=== PATIENT | male | born 1940 | race Caucasian/White ===

== ENCOUNTER 2021-01-22 19:00 | Inpatient (IN) | payer MEDICARE, BC ==
[2021-01-22] MEDS ORDERED: ALBUTEROL NEBULIZED 2.5 MG/3 ML INHALATION STA ×2 (19:15→20:11)
[2021-01-22] MEDS ORDERED: IPRATROPIUM 0.5 MG/2.5 ML NEBU INHALATION STA ×2 (19:15→20:11)
[2021-01-22] MEDS ORDERED: DEXAMETHASONE SOD PHOSPHATE 10 MG/ML 1 ML VIAL IV STA (19:16)
--- NOTE | 2021-01-22 19:19 | ED ---
General Adult HPI - General Stated complaint: MANISH Time Seen by Provider: 01/22/21 19:04 - History of Present Illness Initial comments: Dictation was produced using [employer] dictation software. please excuse any grammatical, word or spelling errors. This patient was cared for during a federal and state declared state of emergency secondary to Covid 19 Chief Complaint: 80-year-old male past medical history of COPD, home O2 presents to the emergency department for dyspnea History of Present Illness: 80-year-old male he is a poor story. Patient and respiratory distress. He is brought in by EMS for dyspnea. Patient states he has a history of COPD. 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 Patient denies any chest pain. Denies any fever. No sore throat or cough or runny nose. EMS reports that they felt like he was having runs of supraventricular tachycardia with runs of trigeminy. No action was taken by them. The ROS documented in this emergency department record has been reviewed and confirmed by me. Those systems with pertinent positive or negative responses have been documented in the HPI. All other systems are other negative and/or noncontributory. PHYSICAL EXAM: General Impression: Alert and oriented x3, not in acute distress HEENT: Normocephalic atraumatic, extra-ocular movements intact, pupils equal and reactive to light bilaterally, mucous membranes moist. Cardiovascular: Heart regular rate and rhythm Chest: Diffuse wheezing with auscultation to the lungs, 3 word sentences Abdomen: abdomen soft, non-tender, non-distended, no organomegaly Musculoskeletal: Pulses present and equal in all extremities, no peripheral edema Motor: no focal deficits noted Neurological: CN II-XII grossly intact, no focal motor or sensory deficits noted Skin: Intact with no visualized rashes Psych: Normal affect and mood ED course: 80-year-old male presents to the emergency department for dyspnea. Patient significantly wheezing at bedside. Placed on BiPAP immediately. Has a history of COPD home oxygen. Chest x-ray shows pulmonary fibrosis with increased interstitial density. Laboratory evaluation shows no acute processes. Patient given breathing treatment and reevaluated at bedside with improvement of symptoms. Patient does not want any CPR but does agree to intubation. Patient be admitted and will be continued on BiPAP. Most of his care done at [facility]. He will be admitted to [facility] with consultation to pulmonology. EKG interpretation: Ventricular rate 27, sinus tachycardia,. 160, QRS 74, QTC 497. Multifocal atrial tachycardia. - Related Data Allergies Allergy/AdvReac Type Severity Reaction Status Date / Time No Known Allergies Allergy Verified 01/22/21 19:20 Review of Systems ROS Statement: Those systems with pertinent positive or pertinent negative responses have been documented in the HPI. ROS Other: All systems not noted in ROS Statement are negative. Course Vital Signs 01/22/21 01/22/21 01/22/21 19:15 19:17 19:35 Temperature 98.7 F Pulse Rate 122 H 118 H Respiratory 32 H 28 H Rate Blood Pressure 182/110 O2 Sat by Pulse 96 Oximetry 01/22/21 20:11 Temperature Pulse Rate 105 H Respiratory 24 Rate Blood Pressure 145/99 O2 Sat by Pulse 98 Oximetry Medical Decision Making - Lab Data Result diagrams: 01/22/21 19:21 01/22/21 19:21 Lab Results 01/22/21 01/22/21 01/22/21 Range/Units 19:21 19:21 19:21 WBC 9.6 (3.8-10.6) k/uL RBC 4.81 (4.30-5.90) m/uL Hgb 14.8 (13.0-17.5) gm/dL Hct 43.6 (39.0-53.0) % MCV 90.6 (80.0-100.0) fL MCH 30.7 (25.0-35.0) pg MCHC 33.9 (31.0-37.0) g/dL RDW 13.8 (11.5-15.5) % Plt Count 206 (150-450) k/uL MPV 7.6 Neutrophils % 58 % Lymphocytes % 24 % Monocytes % 7 % Eosinophils % 8 % Basophils % 1 % Neutrophils # 5.6 (1.3-7.7) k/uL Lymphocytes # 2.3 (1.0-4.8) k/uL Monocytes # 0.7 (0-1.0) k/uL Eosinophils # 0.8 H (0-0.7) k/uL Basophils # 0.1 (0-0.2) k/uL PT 10.7 (9.0-12.0) sec INR 1.0 (<1.2) APTT 24.1 (22.0-30.0) sec VBG pH (7.31-7.41) VBG pCO2 (37-51) mmHg VBG HCO3 (24-28) mmol/L Sodium 138 (137-145) mmol/L Potassium 3.7 (3.5-5.1) mmol/L Chloride 103 (98-107) mmol/L Carbon Dioxide 25 (22-30) mmol/L Anion Gap 10 mmol/L BUN 11 (9-20) mg/dL Creatinine 0.86 (0.66-1.25) mg/dL Est GFR (CKD-EPI)AfAm >90 (>60 ml/min/1.73 sqM) Est GFR (CKD-EPI)NonAf 81 (>60 ml/min/1.73 sqM) Glucose 121 H (74-99) mg/dL Plasma Lactic Acid Graham (0.7-2.0) mmol/L Calcium 9.0 (8.4-10.2) mg/dL Magnesium 1.7 (1.6-2.3) mg/dL NT-Pro-B Natriuret Pep pg/mL 01/22/21 01/22/21 01/22/21 Range/Units 19:21 19:21 19:21 WBC (3.8-10.6) k/uL RBC (4.30-5.90) m/uL Hgb (13.0-17.5) gm/dL Hct (39.0-53.0) % MCV (80.0-100.0) fL MCH (25.0-35.0) pg MCHC (31.0-37.0) g/dL RDW (11.5-15.5) % Plt Count (150-450) k/uL MPV Neutrophils % % Lymphocytes % % Monocytes % % Eosinophils % % Basophils % % Neutrophils # (1.3-7.7) k/uL Lymphocytes # (1.0-4.8) k/uL Monocytes # (0-1.0) k/uL Eosinophils # (0-0.7) k/uL Basophils # (0-0.2) k/uL PT (9.0-12.0) sec INR (<1.2) APTT (22.0-30.0) sec VBG pH 7.37 (7.31-7.41) VBG pCO2 47 (37-51) mmHg VBG HCO3 26 (24-28) mmol/L Sodium (137-145) mmol/L Potassium (3.5-5.1) mmol/L Chloride (98-107) mmol/L Carbon Dioxide (22-30) mmol/L Anion Gap mmol/L BUN (9-20) mg/dL Creatinine (0.66-1.25) mg/dL Est GFR (CKD-EPI)AfAm (>60 ml/min/1.73 sqM) Est GFR (CKD-EPI)NonAf (>60 ml/min/1.73 sqM) Glucose (74-99) mg/dL Plasma Lactic Acid Graham 1.9 (0.7-2.0) mmol/L Calcium (8.4-10.2) mg/dL Magnesium (1.6-2.3) mg/dL NT-Pro-B Natriuret Pep 237 pg/mL Disposition Clinical Impression: COPD exacerbation Disposition: HOME SELF-CARE Condition: Fair Is patient prescribed a controlled substance at d/c from ED?: No Referrals: Nonstaff,Physician [Primary Care Provider] - 1-2 days Decision Time: 20:19
--- NOTE | 2021-01-22 19:30 | XR ---
EXAMINATION TYPE: XR chest 1V portable DATE OF EXAM: 01/22/2021 COMPARISON: NONE HISTORY: Short of breath TECHNIQUE: Single view FINDINGS: There is slight increased interstitial density in the lower lung ojhn. There is no heart failure. Heart size is normal. Thoracic aorta is atheromatous. There is no pleural effusion. There ar e no hilar masses. There are chest leads. IMPRESSION: Mild increased interstitial density could relate to some mild fibrosis. Normal heart.
[2021-01-22 19:35] LABS: Basophils # (A) 0.1 k/uL (0-0.2); Basophils % (A) 1 %; Eosinophils # (A) 0.8 k/uL (0-0.7); Eosinophils % (A) 8 %; HCT 43.6 % (39.0-53.0); HGB 14.8 gm/dL (13.0-17.5); Lymphocytes # (A) 2.3 k/uL (1.0-4.8); Lymphocytes % (A) 24 %; MCH 30.7 pg (25.0-35.0); MCHC 33.9 g/dL (31.0-37.0); MCV 90.6 fL (80.0-100.0); Mean Platelet Volume 7.6; Monocytes # (A) 0.7 k/uL (0-1.0); Monocytes % (A) 7 %; Neutrophils # (A) 5.6 k/uL (1.3-7.7); Neutrophils % (A) 58 %; Platelet Count 206 k/uL (150-450); RBC 4.81 m/uL (4.30-5.90); RDW 13.8 % (11.5-15.5); WBC 9.6 k/uL (3.8-10.6)
[2021-01-22 19:41] LABS: VBG PH 7.37 (7.31-7.41)
[2021-01-22 19:45] LABS: African American GFR (CKD) >90 (>60 ml/min/1.73 sqM); Anion Gap 10 mmol/L; Blood Urea Nitrogen 11 mg/dL (9-20); Carbon Dioxide 25 mmol/L (22-30); Chloride 103 mmol/L (98-107); Glucose 121 mg/dL (74-99); Magnesium 1.7 mg/dL (1.6-2.3); Non-African American GFR(CKD) 81 (>60 ml/min/1.73 sqM); Potassium 3.7 mmol/L (3.5-5.1); Sodium 138 mmol/L (137-145)
[2021-01-22 19:47] LABS: Partial Thromboplastin Time 24.1 sec (22.0-30.0); Prothrombin Time 10.7 sec (9.0-12.0)
[2021-01-22] MEDS ORDERED: AZITHROMYCIN 500 MG in SODIUM CHLORIDE 0.9% 250 ML IVPB STA (20:11)
[2021-01-22] MEDS ORDERED: POTASSIUM CHLORIDE ER 20 MEQ TAB.ER PO STA (23:00)
[2021-01-22] MEDS: SYMBICORT 160-4.5 MCG INHALER INHALATION SCH (23:55)
--- NOTE | 2021-01-23 00:15 | P.HPIM ---
History of Present Illness H&P Date: 01/22/21 Chief Complaint: SOB 80 year old male with history of COPD on home oxygen 4LPM NC as needed , BPH patient comes in by EMS, for dyspnea, her reports having a physical last week and he was told that everything was fine, but since beginning of the week, he noticed some increase in work of breathing, coughing associated with productive white sputum. no hemoptyiss , no recent hospitalization , no recent use of antibiotics. denies any chest pain , fever, chills. today suddenly he felt very short of breath, with no improvement despite using home oxygen and inhalers. for which he decided to call EMS. he denies recent immobility, hospitalization , or travel ., denies any sick contact. while in the ED, he was noticed to have short runs of NSVT, his Mg 1.7, K 3.7 otherwise blood work overall unremarkable patient was given breathing treatmetn and placed on bipap for which he felt some relief Review of Systems Pertinent positives as noted in HPI. All other systems were reviewed and are negative Past Medical History Past Medical History: COPD History of Any Multi-Drug Resistant Organisms: None Reported Past Surgical History: No Surgical Hx Reported Past Anesthesia/Blood Transfusion Reactions: No Reported Reaction Past Psychological History: No Psychological Hx Reported Smoking Status: Former smoker Past Alcohol Use History: None Reported Past Drug Use History: None Reported Medications and Allergies Home Medications Medication Instructions Recorded Confirmed Type Albuterol Nebulized [Ventolin 2.5 mg INHALATION RT-TID PRN 01/22/21 01/22/21 History Nebulized] Albuterol Sulfate [Albuterol 2 puff PO RT-Q6H PRN 01/22/21 01/22/21 History Sulfate Hfa] Budesonide/Formoterol Fumarate 2 puff INHALATION RT-BID 01/22/21 01/22/21 History [Symbicort 160-4.5 Mcg Inhaler] Cholecalciferol [Vitamin D3 (25 125 mcg PO DAILY 01/22/21 01/22/21 History Mcg = 1000 Iu)] Finasteride [Proscar] 5 mg PO DAILY 01/22/21 01/22/21 History Glucos Sul 2Kcl/MSM/Chond/C/Mn 1 cap PO DAILY 01/22/21 01/22/21 History [Glucosamine Chondroitin Cap] Montelukast Sodium [Singulair] 10 mg PO DAILY 01/22/21 01/22/21 History [place]-3 Fatty Acids/Fish Oil [Fish 1 cap PO DAILY 01/22/21 01/22/21 History Oil 1,000 mg Softgel] Omeprazole 20 mg PO DAILY 01/22/21 01/22/21 History Simvastatin 40 mg PO DAILY 01/22/21 01/22/21 History Tamsulosin [Flomax] 0.4 mg PO DAILY 01/22/21 01/22/21 History Vitamin B Complex 1 cap PO DAILY 01/22/21 01/22/21 History Allergies Allergy/AdvReac Type Severity Reaction Status Date / Time No Known Allergies Allergy Verified 01/22/21 20:53 Physical Exam Vitals: Vital Signs Temp Pulse Pulse Resp BP BP Pulse Ox 01/22/21 22:15 100 01/22/21 21:39 100 01/22/21 21:27 96.5 F L 102 H 23 142/76 96 01/22/21 21:24 106 H 01/22/21 20:25 110 H 01/22/21 20:11 105 H 24 145/99 98 01/22/21 19:56 116 H 01/22/21 19:35 118 H 01/22/21 19:17 98.7 F 122 H 28 H 182/110 96 01/22/21 19:15 32 H Intake and Output 01/22/21 01/22/21 01/23/21 14:59 22:59 07:59 Other: Weight 72.575 kg Constitutional: No acute distress, conversant, pleasant, currently on bipap Eyes: Anicteric sclerae, moist conjunctiva, Pupils equal round reactive to light ENMT: NC/AT wearing bipap Neck: Supple, FROM, no masses, or JVD No carotid bruits No thyromegaly Lungs: decrease breath sounds , with prolonged expiratory phase and diffuse wheezing Clear to percussion accessory muscle use Cardiovascular: Heart regular in rate and rhythm, No murmurs, gallops, or rubs No peripheral edema Abdominal: Soft Nontender, no guarding, rebound or rigidity Abdomen moving with respiration Normoactive bowel sounds No hepatomegaly, No splenomegaly No palpable mass No abdominal wall hernia noted Skin: Normal temperature, tone, texture, turgor No induration No subcutaneous nodules No rash, lesions No ulcers Extremities: No digital cyanosis No clubbing Pedal pulses intact and symmetrical Radial pulses intact and symmetrical No calf tenderness Psychiatric: Alert and oriented to person, place and time Appropriate affect fair judgement Neuro Muscles Strength 5/5 in all 4 extremities Sensation to light touch grossly present throughout Cranial nerves II-XII grossly intact No focal sensory deficits Lymphatics: no palpable cervical or supraclavicular , or inguinal lymph nodes Results CBC & Chem 7: 01/22/21 19:21 01/22/21 19:21 Labs: Abnormal Lab Results - Last 24 Hours (Table) 01/22/21 01/22/21 Range/Units 19:21 19:21 Eosinophils # 0.8 H (0-0.7) k/uL Glucose 121 H (74-99) mg/dL Thrombosis Risk Factor Assmnt - Choose All That Apply Any of the Below Risk Factors Present?: Yes Each Factor Represents 1 point: Abnormal pulmonary function (COPD) Each Risk Factor Represents 3 Points: Age 75 years or older Thrombosis Risk Factor Assessment Total Risk Factor Score: 4 Thrombosis Risk Factor Assessment Level: Moderate Risk Assessment and Plan Assessment: acute COPD exacerbation , unknown underlying cause non sustained VT BPH plan systemic steroids check COVID 19 breathing treatment as needed and around the clock singulair replace 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
[2021-01-23 06:15] LABS: Glucose,Whole Blood 161 mg/dL (75-99)
[2021-01-23] MEDS: PANTOPRAZOLE 40 MG TABLET PO SCH (06:46)
[2021-01-23 07:04] LABS: Basophils % (A) 0 %; Eosinophils % (A) 0 %; HCT 41.4 % (39.0-53.0); HGB 13.6 gm/dL (13.0-17.5); Lymphocytes # (A) 0.5 k/uL (1.0-4.8); Lymphocytes % (A) 10 %; MCHC 32.9 g/dL (31.0-37.0); MCV 91.1 fL (80.0-100.0); Mean Platelet Volume 7.6; Monocytes # (A) 0.1 k/uL (0-1.0); Monocytes % (A) 2 %; Neutrophils % (A) 87 %; Platelet Count 213 k/uL (150-450); RBC 4.54 m/uL (4.30-5.90); RDW 13.8 % (11.5-15.5); WBC 4.6 k/uL (3.8-10.6)
[2021-01-23 07:17] LABS: ALT 19 U/L (4-49); AST 35 U/L (17-59); African American GFR (CKD) >90 (>60 ml/min/1.73 sqM); Albumin 3.8 g/dL (3.5-5.0); Alkaline Phosphatase 66 U/L (38-126); Anion Gap 11 mmol/L; Blood Urea Nitrogen 13 mg/dL (9-20); Carbon Dioxide 23 mmol/L (22-30); Chloride 105 mmol/L (98-107); Glucose 171 mg/dL (74-99); Magnesium 1.7 mg/dL (1.6-2.3); Non-African American GFR(CKD) >90 (>60 ml/min/1.73 sqM); Potassium 4.5 mmol/L (3.5-5.1); Sodium 139 mmol/L (137-145); Total Bilirubin 0.6 mg/dL (0.2-1.3); Total Protein 6.4 g/dL (6.3-8.2)
[2021-01-23] MEDS: TAMSULOSIN 0.4 MG CAP.ER.24H PO SCH (08:19)
[2021-01-23] MEDS: ENOXAPARIN 40 MG/0.4 ML SYRINGE SQ SCH (08:19)
[2021-01-23] MEDS: ATORVASTATIN 20 MG TAB PO SCH (08:19)
[2021-01-23] MEDS: MONTELUKAST 10 MG TAB PO SCH (08:19)
[2021-01-23] MEDS: FINASTERIDE 5 MG TAB PO SCH (08:19)
[2021-01-23] MEDS: IPRATROPIUM-ALBUTEROL 3 ML NEB INHALATION SCH ×4 (08:51→19:53)
[2021-01-23] MEDS: SYMBICORT 160-4.5 MCG INHALER INHALATION SCH ×3 (08:51→19:56)
[2021-01-23] MEDS ORDERED: predniSONE 20 MG TAB PO SCH (09:00)
[2021-01-23] MEDS: methylPREDNISolone SOD SUCCI 40 MG/ML 1 ML VIAL IV SCH ×3 (12:03→23:17)
[2021-01-23] MEDS: AZITHROMYCIN 500 MG TAB PO SCH (12:04)
[2021-01-23 12:09] LABS: Glucose,Whole Blood 138 mg/dL (75-99)
[2021-01-23] MEDS: INSULIN ASPART (NovoLOG) 100 UNIT/ML VIAL SQ SCH ×3 (12:10→20:03)
--- NOTE | 2021-01-23 14:27 | P.PN ---
Subjective Progress Note Date: 01/23/21 Pt reports significant improvement in dyspnea and improvement in cough with sputum production. Still reports some chest tightness/wheezing. Objective - Vital Signs Vital signs: Vital Signs Temp 97.6 F 01/23/21 08:15 Pulse 93 01/23/21 11:58 Resp 20 01/23/21 11:30 BP 134/75 01/23/21 11:30 Pulse Ox 96 01/23/21 11:30 Intake & Output 01/22/21 01/23/21 01/23/21 17:59 06:59 18:59 Intake Total 240 Balance 240 Weight Intake: Oral 240 Other: Voiding Method Urinal # Voids - Exam Gen: awake, alert HEENT: normocephalic, atraumatic, good hearing acuity, moist mucous membranes Resp: good air exchange, breathing comfortably with no accessory muscle use, bilateral diffuse wheezing CVS: good distal perfusion x 4, regular rate and rhythm without murmurs GI: soft, NTTP, ND : no SPT, no CVAT, doran catheter not present MSK: no pitting edema, no clubbing Neuro: non-focal, moving all extremities Psych: cooperative, euthymic mood - Labs CBC & Chem 7: 01/23/21 06:18 01/23/21 06:18 Labs: Abnormal Lab Results - Last 24 Hours (Table) 01/22/21 01/22/21 01/23/21 Range/Units 19:21 19:21 06:13 Lymphocytes # (1.0-4.8) k/uL Eosinophils # 0.8 H (0-0.7) k/uL Glucose 121 H (74-99) mg/dL POC Glucose (mg/dL) 161 H (75-99) mg/dL 01/23/21 01/23/21 01/23/21 Range/Units 06:18 06:18 12:08 Lymphocytes # 0.5 L (1.0-4.8) k/uL Eosinophils # (0-0.7) k/uL Glucose 171 H (74-99) mg/dL POC Glucose (mg/dL) 138 H (75-99) mg/dL Assessment and Plan Assessment: Acute COPD exacerbation CAP NSVT BPH plan systemic steroids ceftriaxone/azithromycin check COVID 19 breathing treatment as needed and around the clock singulair, symbicort replace 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
--- NOTE | 2021-01-23 15:38 | P.CNPUL ---
History of Present Illness Consult date: 01/23/21 Requesting physician: Rosina Arreola Reason for consult: COPD Chief complaint: Shortness of breath and cough. 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 Patient has been experiencing intermittent episodes of cough wheezing and shortness of breath, cough is productive with yellow phlegm, no fever no chills no hemoptysis, no chest pain. His symptoms have been going on for at least one week. Had similar symptoms in the past were in his primary care physician has treated him mostly with prednisone burst and taper, and he usually does well with steroids. Apparently upon arrival to the ER, patient was in significant respiratory distress, and he was given updrafts, he was also placed on BiPAP briefly, and that seemed to help his symptoms. Patient used to be a heavy smoker, however he quit at age 48. Does not smoke at present. Patient is normally on updrafts in the form of albuterol, and he takes Symbicort on a regular basis at home is also on Singulair. Chest x-ray showed minimal interstitial density at the right lung base, could be atelectasis or could be an early infiltrate. Nonetheless the patient will be treated with antibiotics empirically. No leukocytosis on admission. Metabolic profile is relatively normal on admission. Renner virus PCR not detected. Other labs are also unremarkable. Review of Systems Constitutional: Denies fever chills denies weight loss. HEENT: Negative. Cardiac: Negative although while in the emergency room patient had short runs of nonsustained ventricular tachycardia. Pulmonary: As noted in HPI. GI: Negative. Genitourinary: Negative. Musculoskeletal: Negative. Skin: Negative. Neurologic: Negative. Hematologic: Negative. Psychiatric: Negative. Endocrine: Negative. Past Medical History Past Medical History: COPD History of Any Multi-Drug Resistant Organisms: None Reported Past Surgical History: No Surgical Hx Reported Past Anesthesia/Blood Transfusion Reactions: No Reported Reaction Past Psychological History: No Psychological Hx Reported Smoking Status: Former smoker Past Alcohol Use History: None Reported Past Drug Use History: None Reported Medications and Allergies Home Medications Medication Instructions Recorded Confirmed Type Albuterol Sulfate [Albuterol 2 puff PO RT-Q6H PRN 01/22/21 01/22/21 History Sulfate Hfa] Cholecalciferol [Vitamin D3 (25 125 mcg PO DAILY 01/22/21 01/22/21 History Mcg = 1000 Iu)] Finasteride [Proscar] 5 mg PO DAILY 01/22/21 01/22/21 History Glucos Sul 2Kcl/MSM/Chond/C/Mn 1 cap PO DAILY 01/22/21 01/22/21 History [Glucosamine Chondroitin Cap] Montelukast Sodium [Singulair] 10 mg PO DAILY 01/22/21 01/22/21 History [place]-3 Fatty Acids/Fish Oil [Fish 1 cap PO DAILY 01/22/21 01/22/21 History Oil 1,000 mg Softgel] Omeprazole 20 mg PO DAILY 01/22/21 01/22/21 History Simvastatin 40 mg PO DAILY 01/22/21 01/22/21 History Tamsulosin [Flomax] 0.4 mg PO DAILY 01/22/21 01/22/21 History Vitamin B Complex 1 cap PO DAILY 01/22/21 01/22/21 History Budesonide/Formoterol Fumarate 2 puff INHALATION RT-BID PRN 01/23/21 01/23/21 History [Symbicort 80-4.5 Mcg Inhaler] Ipratropium-Albuterol Nebulize 3 ml INHALATION RT-QID PRN 01/23/21 01/23/21 History [Duoneb 0.5 mg-3 mg/3 ml Soln] Allergies Allergy/AdvReac Type Severity Reaction Status Date / Time No Known Allergies Allergy Verified 01/22/21 20:53 Physical Exam Vitals: Vital Signs Temp Pulse Pulse Resp BP BP Pulse Ox 01/23/21 15:15 95 01/23/21 15:02 94 01/23/21 11:58 93 01/23/21 11:47 92 01/23/21 11:30 112 H 20 134/75 96 01/23/21 09:01 18 97 01/23/21 08:24 18 97 01/23/21 08:15 97.6 F 109 H 18 139/80 96 01/23/21 04:00 97.9 F 105 H 20 129/77 97 01/23/21 03:00 108 H 22 01/23/21 00:00 98.4 F 108 H 22 134/76 96 03/13/21 22:15 100 01/22/21 21:39 100 01/22/21 21:27 96.5 F L 102 H 23 142/76 96 01/22/21 21:24 106 H 01/22/21 20:25 110 H 01/22/21 20:11 105 H 24 145/99 98 01/22/21 19:56 116 H 01/22/21 19:35 118 H 01/22/21 19:17 98.7 F 122 H 28 H 182/110 96 01/22/21 19:15 32 H Intake and Output 01/23/21 01/23/21 01/23/21 06:59 14:59 22:59 Intake Total 590 Balance 590 Intake: Intake, IV Titration 50 Amount cefTRIAXone 1 gm In 50 Sodium Chloride 0.9% 50 ml @ 100 mls/hr IVPB Q24HR [facility] Rx#:[id number] Oral 540 Other: Voiding Method Urinal # Voids 1 # Bowel Movements 1 Weight Physical Exam: Revealed 80-year-old white male, pleasant, in no distress, on 2 L nasal cannula. Head: Atraumatic, normocephalic. HEENT:[Neck is supple.] [No neck masses.] [No thyromegaly.] [No JVD.] Chest: Symmetrical chest expansion, rhonchi and wheezes noted bilaterally more so on forced expiratory maneuver.] Cardiac Exam: [Normal S1 and S2, no S3 gallop, no murmur.] Abdomen: [Soft, nontender, no megaly, no rebound, no guarding, normal bowel sounds.] Extremities: [No clubbing, no edema, no cyanosis.] Good pulses bilaterally. Neurological Exam: [No focal neurologic deficit.] Alert and oriented 3. Psychiatric: Normal mood, affect and normal mental status examination. Skin: No rashes. Musculoskeletal: Normal range of motion no deformities. Lymphatics: No lymphadenopathy. Results - Laboratory Findings CBC and BMP: 01/23/21 06:18 01/23/21 06:18 PT/INR, D-dimer PT 10.7 sec (9.0-12.0) 01/22/21 19:21 INR 1.0 (<1.2) 01/22/21 19:21 Abnormal lab findings: Abnormal Labs 01/22/21 01/22/21 01/23/21 19:21 19:21 06:13 Lymphocytes # Eosinophils # 0.8 H Glucose 121 H POC Glucose (mg/dL) 161 H 01/23/21 01/23/21 01/23/21 06:18 06:18 12:08 Lymphocytes # 0.5 L Eosinophils # Glucose 171 H POC Glucose (mg/dL) 138 H - Diagnostic Findings Chest x-ray: image reviewed (As noted in HPI.) Assessment and Plan Assessment: Impression: Acute exacerbation of COPD. Acute purulent tracheobronchitis, however cannot rule out limited pneumonia in the right lower lobe, could be community-acquired pneumonia the findings in the right lower lobe are nonspecific. Remote smoking history. Nonsustained ventricular tachycardia. Benign prostatic hypertrophy. Recommendation: Continue updrafts. Continue Symbicort. Continue antibiotics in the form of Rocephin and Zithromax. Continue DVT prophylaxis. Continue Solu-Medrol. And eventually transitioned to prednisone. Reassess in the next 24 hours, possibly discharged home in the next 24-48 hours. Follow-up with me on outpatient basis. We'll continue to follow. Time with Patient: Greater than 30
[2021-01-23 17:02] LABS: Glucose,Whole Blood 156 mg/dL (75-99)
[2021-01-23 19:58] LABS: Glucose,Whole Blood 139 mg/dL (75-99)
[2021-01-24 06:05] LABS: Glucose,Whole Blood 154 mg/dL (75-99)
[2021-01-24] MEDS: methylPREDNISolone SOD SUCCI 40 MG/ML 1 ML VIAL IV SCH ×3 (06:20→17:51)
[2021-01-24] MEDS: INSULIN ASPART (NovoLOG) 100 UNIT/ML VIAL SQ SCH ×4 (06:20→21:03)
[2021-01-24] MEDS: PANTOPRAZOLE 40 MG TABLET PO SCH (06:20)
[2021-01-24] MEDS: IPRATROPIUM-ALBUTEROL 3 ML NEB INHALATION SCH ×4 (08:25→20:09)
[2021-01-24] MEDS: SYMBICORT 160-4.5 MCG INHALER INHALATION SCH ×2 (09:01→20:09)
[2021-01-24] MEDS: AZITHROMYCIN 500 MG TAB PO SCH (09:10)
[2021-01-24] MEDS: ENOXAPARIN 40 MG/0.4 ML SYRINGE SQ SCH (09:10)
[2021-01-24] MEDS: TAMSULOSIN 0.4 MG CAP.ER.24H PO SCH (09:10)
[2021-01-24] MEDS: ATORVASTATIN 20 MG TAB PO SCH (09:10)
[2021-01-24] MEDS: MONTELUKAST 10 MG TAB PO SCH (09:11)
[2021-01-24] MEDS: FINASTERIDE 5 MG TAB PO SCH (09:11)
--- NOTE | 2021-01-24 09:15 | P.PN ---
Subjective Progress Note Date: 01/24/21 No new complaints. Cough is improving, sputum production is now white/clear. Breathing improved. Still feels a little tight and dyspneic with exertion. Objective - Vital Signs Vital signs: Vital Signs Temp 96.5 F L 01/24/21 08:42 Pulse 95 01/24/21 08:42 Resp 18 01/24/21 08:42 BP 126/96 01/24/21 08:42 Pulse Ox 95 01/24/21 08:42 Intake & Output 01/23/21 01/24/21 01/24/21 18:59 06:59 18:59 Intake Total 826 Output Total 400 200 Balance 426 -200 Weight 69.2 kg Intake: Intake, IV Titration 50 Amount cefTRIAXone 1 gm In 50 Sodium Chloride 0.9% 50 ml @ 100 mls/hr IVPB Q24HR [facility] Rx#:[id number] Oral 776 Output: Urine 400 200 Other: Voiding Method Urinal Urinal Urinal # Voids 1 1 # Bowel Movements 1 - Exam Gen: awake, alert HEENT: normocephalic, atraumatic, good hearing acuity, moist mucous membranes Resp: good air exchange, breathing comfortably with no accessory muscle use, bilateral diffuse wheezing CVS: good distal perfusion x 4, regular rate and rhythm without murmurs GI: soft, NTTP, ND : no SPT, no CVAT, doran catheter not present MSK: no pitting edema, no clubbing Neuro: non-focal, moving all extremities Psych: cooperative, euthymic mood - Labs CBC & Chem 7: 01/23/21 06:18 01/23/21 06:18 Labs: Abnormal Lab Results - Last 24 Hours (Table) 01/23/21 01/23/21 01/23/21 Range/Units 12:08 17:00 19:56 POC Glucose (mg/dL) 138 H 156 H 139 H (75-99) mg/dL 01/24/21 Range/Units 06:04 POC Glucose (mg/dL) 154 H (75-99) mg/dL Assessment and Plan Assessment: Acute COPD exacerbation CAP NSVT BPH plan systemic steroids ceftriaxone/azithromycin check COVID 19 breathing treatment as needed and around the clock singulair, symbicort 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
[2021-01-24 12:03] LABS: Glucose,Whole Blood 120 mg/dL (75-99)
--- NOTE | 2021-01-24 16:14 | P.PN ---
Subjective Progress Note Date: 01/24/21 Principal diagnosis: COPD exacerbation. 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 Patient has been experiencing intermittent episodes of cough wheezing and shortness of breath, cough is productive with yellow phlegm, no fever no chills no hemoptysis, no chest pain. His symptoms have been going on for at least one week. Had similar symptoms in the past were in his primary care physician has treated him mostly with prednisone burst and taper, and he usually does well w ith steroids. Apparently upon arrival to the ER, patient was in significant respiratory distress, and he was given updrafts, he was also placed on BiPAP briefly, and that seemed to help his symptoms. Patient used to be a heavy smoker, however he quit at age 48. Does not smoke at present. Patient is normally on updrafts in the form of albuterol, and he takes Symbicort on a regular basis at home is also on Singulair. Chest x-ray showed minimal interstitial density at the right lung base, could be atelectasis or could be an early infiltrate. Nonetheless the patient will be treated with antibiotics empirically. No leukocytosis on admission. Metabolic profile is relatively normal on admission. Renner virus PCR not detected. Other labs are also unremarkable. Progress note dated 01/24/2021. This patient was seen by my partner yesterday in consultation. His primary care is at [facility]. He came with complaints of increasing cough, wheezing, and shortness of breath. His cough was productive of yellow phlegm. There is no fever or chills or chest pain. The patient was admitted with a diagnosis of COPD exacerbation. When he came into the ER, he was apparently in significant respiratory distress, placed on BiPAP and given corticosteroids in updraft treatments. Currently, he is resting comfortably in his room. He sitting up in his chair. He is hoping to be able to be discharged in the near future. There is some bibasilar infiltrates or atelectasis noted, at both bases, more on the right than on the left side. His most recent labs all look pretty good and they are from the and January 23. His coronavirus PCR test was negative. His medications include Symbicort, Zithromax, Rocephin, DuoNeb, and Solu-Medrol. He is also on Singulair, 10 mg daily. Objective - Vital Signs Vital signs: Vital Signs Temp 96.5 F L 01/24/21 08:42 Pulse 96 01/24/21 15:55 Resp 18 01/24/21 14:00 BP 116/79 01/24/21 11:50 Pulse Ox 94 L 01/24/21 11:50 Intake & Output 01/23/21 01/24/21 01/24/21 18:59 06:59 18:59 Intake Total 826 240 Output Total 400 200 280 Balance 426 -200 -40 Weight 69.2 kg Intake: Intake, IV Titration 50 Amount cefTRIAXone 1 gm In 50 Sodium Chloride 0.9% 50 ml @ 100 mls/hr IVPB Q24HR PREMA Rx#:[id number] Oral 776 240 Output: Urine 400 200 280 Other: Voiding Method Urinal Urinal Urinal # Voids 1 1 1 # Bowel Movements 1 - Exam No acute distress, oriented 3. Nasal O2 at 3 L noted. The patient has no evidence of conversational dyspnea, audible wheezing, or use of accessory muscles HEENT examination is grossly unremarkable. Mucous membranes are moist. No oral lesions. Neck supple. Full range of motion. No adenopathy thyromegaly or neck vein distention. Cardiovascular examination reveals regular rhythm rate. S1-S2 normal. No S3 or S4. No discernible murmur noted. Heart rate is 95 bpm. Heart sounds are distant. Lungs reveal bilateral rhonchi, and mild expiratory wheezes. Breath sounds equal bilaterally but diminished throughout. No crackles. There is prolongation on forced maneuver. Abdomen soft bowel sounds are heard. No masses or tenderness. Extremities are intact. No cyanosis clubbing or edema. Skin is without rash or lesion. Neurologic examination is brief but nonfocal. - Labs CBC & Chem 7: 01/23/21 06:18 01/23/21 06:18 Labs: Abnormal Lab Results - Last 24 Hours (Table) 01/23/21 01/23/21 01/24/21 Range/Units 17:00 19:56 06:04 POC Glucose (mg/dL) 156 H 139 H 154 H (75-99) mg/dL 01/24/21 Range/Units 12:01 POC Glucose (mg/dL) 120 H (75-99) mg/dL Assessment and Plan Assessment: Acute exacerbation of COPD. Probable acute purulent tracheobronchitis, unlikely that the patient has significant community-acquired pneumonia, right lower lobe. Remote tobacco history. Nonsustained ventricular tachycardia. BPH. Plan: Plan dated 01/24/2021. The patient will continue on steroids, Symbicort, updrafts, and antibiotics. The patient could be considered for discharge in the next day or two. I will check a pro-calcitonin level. If it is normal, and antibiotics should be de-escalated. Additional recommendations and suggestions are forthcoming. Prognosis is guarded. He should follow-up with his [facility] physicians. Time with Patient: Less than 30
[2021-01-24 17:09] LABS: Glucose,Whole Blood 150 mg/dL (75-99)
[2021-01-24 20:37] LABS: Glucose,Whole Blood 181 mg/dL (75-99)
[2021-01-25] MEDS: methylPREDNISolone SOD SUCCI 40 MG/ML 1 ML VIAL IV SCH ×3 (00:04→12:29)
[2021-01-25 04:20] VITALS: RESP 16
[2021-01-25 06:40] LABS: Glucose,Whole Blood 160 mg/dL (75-99)
[2021-01-25] MEDS: PANTOPRAZOLE 40 MG TABLET PO SCH (06:48)
[2021-01-25] MEDS: INSULIN ASPART (NovoLOG) 100 UNIT/ML VIAL SQ SCH ×2 (06:48→12:26)
[2021-01-25] MEDS: SYMBICORT 160-4.5 MCG INHALER INHALATION SCH ×2 (08:19→08:30)
[2021-01-25] MEDS: IPRATROPIUM-ALBUTEROL 3 ML NEB INHALATION SCH ×2 (08:19→12:03)
[2021-01-25] MEDS: ENOXAPARIN 40 MG/0.4 ML SYRINGE SQ SCH (08:35)
[2021-01-25] MEDS: TAMSULOSIN 0.4 MG CAP.ER.24H PO SCH (08:35)
[2021-01-25] MEDS: AZITHROMYCIN 500 MG TAB PO SCH (08:35)
[2021-01-25] MEDS: MONTELUKAST 10 MG TAB PO SCH (08:35)
[2021-01-25] MEDS: ATORVASTATIN 20 MG TAB PO SCH (08:35)
[2021-01-25] MEDS: FINASTERIDE 5 MG TAB PO SCH (08:35)
[2021-01-25 08:42] VITALS: TEMP 96.5
[2021-01-25 12:05] LABS: Glucose,Whole Blood 129 mg/dL (75-99)
[2021-01-25 12:35] VITALS: BP 159/62; PULSE 116
--- NOTE | 2021-01-25 12:45 | P.DS ---
Providers Date of admission: 01/22/21 20:15 Expected date of discharge: 01/25/21 Attending physician: Rosina Arreola MD Consults: 01/22/21 20:15 Consult Physician Routine Consulting Provider: Daya Whiteside Consult Reason/Comments: copd Do you want consulting provider notified?: Yes Primary care physician: Physician Nonstaff Hospital Course: Acute COPD exacerbation CAP NSVT BPH 80 year old man with history of BPH, COPD presented with CAP and COPD exacerbation. He was started on steroids, oxygen, nebulizers, and antibiotics. Initially required 4L of NC, but was titrated off to room air. Patient tells me he recently rec'd a pneumonia shot, and is due for his COVID vaccination in a couple weeks. His oxygen requirement improved quickly, but he still had significant wheezing on physical exam, prompting an extra day of hospitalization. Today, he reports feeling back to baseline, and lung sounds were significantly improved, though with mild diffuse end-expiratory wheezing. He was counseled to continue his nebulizers QID for next 3 days, then on a PRN basis. He was discharged with 4 more days of levofloxacin for total 7 day course, and with 3 days of prednisone for total 5 day course. He indicated a desire to switch his pulmonary specialty group to a physician [place] to [place] and this was arranged for patient on discharge. He is to follow up within the week or early next week. I spent 40 minutes preparing this discharge. Assessment: Gen: awake, alert HEENT: normocephalic, atraumatic, good hearing acuity, moist mucous membranes Resp: good air exchange, breathing comfortably with no accessory muscle use, bilateral diffuse wheezing CVS: good distal perfusion x 4, regular rate and rhythm without murmurs GI: soft, NTTP, ND : no SPT, no CVAT, doran catheter not present MSK: no pitting edema, no clubbing Neuro: non-focal, moving all extremities Psych: cooperative, euthymic mood Patient Condition at Discharge: Good Plan - Discharge Summary Discharge Rx Participant: No New Discharge Prescriptions: New levoFLOXacin 750 mg PO DAILY 4 Days #4 tab predniSONE 50 mg PO DAILY #3 tablet Continue Vitamin B Complex 1 cap PO DAILY Tamsulosin [Flomax] 0.4 mg PO DAILY Simvastatin 40 mg PO DAILY Omeprazole 20 mg PO DAILY Montelukast Sodium [Singulair] 10 mg PO DAILY [place]-3 Fatty Acids/Fish Oil [Fish Oil 1,000 mg Softgel] 1 cap PO DAILY Glucos Sul 2Kcl/MSM/Chond/C/Mn [Glucosamine Chondroitin Cap] 1 cap PO DAILY Finasteride [Proscar] 5 mg PO DAILY Cholecalciferol [Vitamin D3 (25 Mcg = 1000 Iu)] 125 mcg PO DAILY Albuterol Sulfate [Albuterol Sulfate Hfa] 2 puff PO RT-Q6H PRN PRN Reason: Shortness Of Breath Budesonide/Formoterol Fumarate [Symbicort 80-4.5 Mcg Inhaler] 2 puff INHALATION RT-BID PRN PRN Reason: Shortness Of Breath Ipratropium-Albuterol Nebulize [Duoneb 0.5 mg-3 mg/3 ml Soln] 3 ml INHALATION RT-QID PRN PRN Reason: Shortness Of Breath Discharge Medication List Albuterol Sulfate [Albuterol Sulfate Hfa] 2 puff PO RT-Q6H PRN 01/22/21 [History] Cholecalciferol [Vitamin D3 (25 Mcg = 1000 Iu)] 125 mcg PO DAILY 01/22/21 [History] Finasteride [Proscar] 5 mg PO DAILY 01/22/21 [History] Glucos Sul 2Kcl/MSM/Chond/C/Mn [Glucosamine Chondroitin Cap] 1 cap PO DAILY 01/22/21 [History] Montelukast Sodium [Singulair] 10 mg PO DAILY 01/22/21 [History] [place]-3 Fatty Acids/Fish Oil [Fish Oil 1,000 mg Softgel] 1 cap PO DAILY 01/22/21 [History] Omeprazole 20 mg PO DAILY 01/22/21 [History] Simvastatin 40 mg PO DAILY 01/22/21 [History] Tamsulosin [Flomax] 0.4 mg PO DAILY 01/22/21 [History] Vitamin B Complex 1 cap PO DAILY 01/22/21 [History] Budesonide/Formoterol Fumarate [Symbicort 80-4.5 Mcg Inhaler] 2 puff INHALATION RT-BID PRN 01/23/21 [History] Ipratropium-Albuterol Nebulize [Duoneb 0.5 mg-3 mg/3 ml Soln] 3 ml INHALATION RT-QID PRN 01/23/21 [History] levoFLOXacin 750 mg PO DAILY 4 Days #4 tab 01/25/21 [Rx] predniSONE 50 mg PO DAILY #3 tablet 01/25/21 [Rx] Follow up Appointment(s)/Referral(s): Daya Whiteside MD [STAFF PHYSICIAN] - 02/02/21 10:15 am (SUNDAY) Nonstaff,Physician [Primary Care Provider] - 1-2 days Patient Instructions/Handouts: COPD (Chronic Obstructive Pulmonary Disease) (DC) Discharge Disposition: HOME SELF-CARE
--- NOTE | 2021-01-25 15:28 | P.PN ---
Subjective Progress Note Date: 01/25/21 Principal diagnosis: COPD exacerbation. 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 Patient has been experiencing intermittent episodes of cough wheezing and shortness of breath, cough is productive with yellow phlegm, no fever no chills no hemoptysis, no chest pain. His symptoms have been going on for at least one week. Had similar symptoms in the past were in his primary care physician has treated him mostly with prednisone burst and taper, and he usually does well w ith steroids. Apparently upon arrival to the ER, patient was in significant respiratory distress, and he was given updrafts, he was also placed on BiPAP briefly, and that seemed to help his symptoms. Patient used to be a heavy smoker, however he quit at age 48. Does not smoke at present. Patient is normally on updrafts in the form of albuterol, and he takes Symbicort on a regular basis at home is also on Singulair. Chest x-ray showed minimal interstitial density at the right lung base, could be atelectasis or could be an early infiltrate. Nonetheless the patient will be treated with antibiotics empirically. No leukocytosis on admission. Metabolic profile is relatively normal on admission. Renner virus PCR not detected. Other labs are also unremarkable. Progress note dated 01/24/2021. This patient was seen by my partner yesterday in consultation. His primary care is at [facility]. He came with complaints of increasing cough, wheezing, and shortness of breath. His cough was productive of yellow phlegm. There is no fever or chills or chest pain. The patient was admitted with a diagnosis of COPD exacerbation. When he came into the ER, he was apparently in significant respiratory distress, placed on BiPAP and given corticosteroids in updraft treatments. Currently, he is resting comfortably in his room. He sitting up in his chair. He is hoping to be able to be discharged in the near future. There is some bibasilar infiltrates or atelectasis noted, at both bases, more on the right than on the left side. His most recent labs all look pretty good and they are from the and January 23. His coronavirus PCR test was negative. His medications include Symbicort, Zithromax, Rocephin, DuoNeb, and Solu-Medrol. He is also on Singulair, 10 mg daily. Progress note dated 01/25/2021. This is an 80-year-old gentleman who was admitted with a diagnosis of COPD exacerbation, purulent tracheobronchitis and possible bronchopneumonia, a remote history of tobacco use, nonsustained ventricular tachycardia, and benign prostatic hypertrophy. The patient typically sees physicians over at [facility]. He actually resides in [place]. From the pulmonary standpoint, the patient is doing much better. When he initially presented to the ER, he had significant respiratory distress, is placed on BiPAP, he was breathing treatments, and corticosteroids. He is feeling much better currently. He typically does not use oxygen at home. The patient will come back to see us in the office post discharge. From the pulmonary standpoint, the patient is doing much better. Objective - Vital Signs Vital signs: Vital Signs Temp 96.5 F L 01/25/21 08:00 Pulse 100 01/25/21 12:12 Resp 16 01/25/21 12:00 BP 159/62 01/25/21 12:00 Pulse Ox 92 L 01/25/21 12:00 Intake & Output 01/24/21 01/25/21 01/25/21 18:59 06:59 18:59 Intake Total 684 480 Output Total 280 1200 Balance 404 -1200 480 Weight 70.1 kg Intake: Oral 684 480 Output: Urine 280 1200 Other: Voiding Method Urinal Toilet Toilet Urinal Urinal # Voids 1 2 # Bowel Movements 1 - Exam No acute distress, oriented 3. Nasal O2 at 3 L noted. The patient has no evidence of conversational dyspnea, audible wheezing, or use of accessory muscles HEENT examination is grossly unremarkable. Mucous membranes are moist. No oral lesions. Teeth are in poor repair. Neck supple. Full range of motion. No adenopathy thyromegaly or neck vein distention. Cardiovascular examination reveals regular rhythm rate. S1-S2 normal. No S3 or S4. No discernible murmur noted. Heart rate is 87 bpm. Heart sounds are di stant. Lungs reveal bilateral rhonchi, and mild expiratory wheezes. Breath sounds equal bilaterally but diminished throughout. No crackles. There is prolongation on forced maneuver. Abdomen soft bowel sounds are heard. No masses or tenderness. Extremities are intact. No cyanosis clubbing or edema. Skin is without rash or lesion. Neurologic examination is brief but nonfocal. - Labs CBC & Chem 7: 01/23/21 06:18 01/23/21 06:18 Labs: Abnormal Lab Results - Last 24 Hours (Table) 01/24/21 01/24/21 01/25/21 Range/Units 17:07 20:36 06:39 POC Glucose (mg/dL) 150 H 181 H 160 H (75-99) mg/dL 01/25/21 Range/Units 11:58 POC Glucose (mg/dL) 129 H (75-99) mg/dL Assessment and Plan Assessment: Acute exacerbation of COPD. Probable acute purulent tracheobronchitis, unlikely that the patient has significant community-acquired pneumonia, right lower lobe. Remote tobacco history. Nonsustained ventricular tachycardia. BPH. Plan: Plan dated 01/10/2021. The patient is doing much better. His niece, who works here in the hospital states that he will follow-up with one of us, once he is discharged from the [facility]. He can be discharged home on updrafts with albuterol sulfate and ipratropium bromide 3-4 times a day, and Symbicort, 160/4.5, 2 puffs twice a day. In addition, he should go home with a prednisone burst and taper. It will be very interesting once we get him into the office, and do pulmonary function tests, and determine how severe his chronic lung disease is. Additional recommendations and suggestions are forthcoming. Prognosis is guarded. Time with Patient: Less than 30
== END 2021-01-25 15:02 | disposition home or self-care (01) | DRG 191 ==
LOC: EC 19:00 → 3SCARD 20:15
PROVIDERS: ADMIT Internal Medicine; ATTEND Internal Medicine
PROC: 5A09357 Assistance with Respiratory Ventilation, Less than 24 Consecutive Hours, Continuous Positive Airway Pressure (ICD-10-PCS; principal; 2021-01-22)
DX: J44.0 Chronic obstructive pulmonary disease with (acute) lower respiratory infection (principal); I47.1 Supraventricular tachycardia; J44.1 Chronic obstructive pulmonary disease with (acute) exacerbation; Z87.891 Personal history of nicotine dependence; Z99.81 Dependence on supplemental oxygen; J84.10 Pulmonary fibrosis, unspecified; Z79.51 Long term (current) use of inhaled steroids; Z79.899 Other long term (current) drug therapy; N40.0 Benign prostatic hyperplasia without lower urinary tract symptoms; Z20.822 Contact with and (suspected) exposure to COVID-19; R06.03 Acute respiratory distress
CPT/HCPCS: 36415; 71045; 80048; 80053; 82803; 83605; 83735; 83880; 84145; 85025; 85610; 85730; 87635; 93005; 94640; 94644; 94645; 94660; 94760; 96365; 96375; 99285

== ENCOUNTER 2021-05-09 13:46 | Observation (INO) | payer MEDICARE, BC ==
[2021-05-09 15:37] LABS: Basophils # (A) 0.1 k/uL (0-0.2); Basophils % (A) 1 %; Eosinophils # (A) 0.9 k/uL (0-0.7); Eosinophils % (A) 11 %; HCT 44.7 % (39.0-53.0); HGB 15.1 gm/dL (13.0-17.5); Lymphocytes # (A) 1.3 k/uL (1.0-4.8); Lymphocytes % (A) 17 %; MCH 29.5 pg (25.0-35.0); MCHC 33.7 g/dL (31.0-37.0); MCV 87.4 fL (80.0-100.0); Mean Platelet Volume 7.2; Monocytes # (A) 0.5 k/uL (0-1.0); Monocytes % (A) 7 %; Neutrophils # (A) 4.7 k/uL (1.3-7.7); Neutrophils % (A) 61 %; Platelet Count 247 k/uL (150-450); RBC 5.11 m/uL (4.30-5.90); RDW 14.7 % (11.5-15.5); WBC 7.7 k/uL (3.8-10.6)
[2021-05-09 15:47] LABS: ALT 14 U/L (4-49); AST 28 U/L (17-59); African American GFR (CKD) >90 (>60 ml/min/1.73 sqM); Albumin 4.1 g/dL (3.5-5.0); Alkaline Phosphatase 85 U/L (38-126); Anion Gap 10 mmol/L; Blood Urea Nitrogen 18 mg/dL (9-20); Calcium 9.6 mg/dL (8.4-10.2); Carbon Dioxide 30 mmol/L (22-30); Chloride 105 mmol/L (98-107); Glucose 120 mg/dL (74-99); Non-African American GFR(CKD) 82 (>60 ml/min/1.73 sqM); Potassium 4.1 mmol/L (3.5-5.1); Sodium 145 mmol/L (137-145); Total Bilirubin 0.3 mg/dL (0.2-1.3); Total Protein 6.9 g/dL (6.3-8.2)
[2021-05-09 15:50] LABS: Partial Thromboplastin Time 23.7 sec (22.0-30.0); Prothrombin Time 10.9 sec (9.0-12.0)
--- NOTE | 2021-05-09 16:03 | XR ---
EXAMINATION TYPE: XR chest 2V DATE OF EXAM: 05/09/2021 COMPARISON: 02/02/2021 TECHNIQUE: PA and lateral views submitted. HISTORY: Shortness of breath FINDINGS: The lungs are clear and there is no pneumothorax, pleural effusion, or focal pneumonia. Heart size n ormal. Mild coarsening of the interstitium. No pneumothorax. Atherosclerotic change aorta. Arthropath y of the shoulders. Hypertrophic and degenerative change of the spine. Hyperinflation suggests COPD. IMPRESSION: 1. COPD correlate for chronic interstitial lung disease, bronchitis or interstitial pneumonitis..
[2021-05-09] MEDS ORDERED: IPRATROPIUM-ALBUTEROL 3 ML NEB INHALATION STA ×3 (16:53→18:21)
[2021-05-09] MEDS ORDERED: methylPREDNISolone SOD SUCCI 40 MG/ML 1 ML VIAL IV STA (16:53)
[2021-05-09] MEDS: MAGNESIUM SULFATE-D5W PMX 1 GM in DEXTROSE/WATER 1 100ML.BAG IVPB SCH ×2 (17:06→18:28)
[2021-05-09] MEDS ORDERED: ACETAMINOPHEN TAB 325 MG TAB PO PRN (19:47)
[2021-05-09] MEDS ORDERED: ALBUTEROL NEBULIZED 2.5 MG/3 ML INHALATION PRN (19:55)
[2021-05-09] MEDS ORDERED: ALBUTEROL NEB (CONC) 2.5 MG/0.5 ML INHALATION SCH (20:00)
--- NOTE | 2021-05-09 20:00 | ED ---
SOB HPI - General Chief Complaint: Shortness of Breath Stated Complaint: cough,SOB Time Seen by Provider: 05/09/21 16:38 Source: patient Mode of arrival: ambulatory Limitations: no limitations - History of Present Illness Initial Comments: Patient is an 81-year-old male with past medical history remarkable for COPD on home inhalers who presents emergency Department complaining of acute onset of difficulty in breathing for the last 2-3 days. Patient states he has attempted his home breathing treatments without much improvement. He came to the emerg ency department today seeking improvement in symptoms. He denies any chest pain, fevers, chills, sick contacts. He is endorsing an increased amount of phlegm that he coughs up, however there is no change in color. He denies any abdominal pain, nausea, vomiting. He denies any headache, weakness, numbness. Patient voices no other acute complaints at this time. He is audibly wheezing and thinks that he needs stronger medications to help with his breathing. He states he has required the BiPAP machine in the past, however currently does not require based on his prior symptoms. - Related Data Home Medications Medication Instructions Recorded Confirmed Albuterol Sulfate [Albuterol 1 - 2 puff INHALATION RT-Q6H PRN 01/22/21 05/09/21 Sulfate Hfa] Cholecalciferol [Vitamin D3 (25 125 mcg PO DAILY 01/22/21 05/09/21 Mcg = 1000 Iu)] Finasteride [Proscar] 5 mg PO DAILY 01/22/21 05/09/21 Glucos Sul 2Kcl/MSM/Chond/C/Mn 1 cap PO DAILY 01/22/21 05/09/21 [Glucosamine Chondroitin Cap] [place]-3 Fatty Acids/Fish Oil [Fish 1 cap PO DAILY 01/22/21 05/09/21 Oil 1,000 mg Softgel] Simvastatin 40 mg PO HS 01/22/21 05/09/21 Tamsulosin [Flomax] 0.4 mg PO DAILY 01/22/21 05/09/21 Vitamin B Complex 1 cap PO DAILY 01/22/21 05/09/21 Budesonide/Formoterol Fumarate 2 puff INHALATION RT-BID PRN 01/23/21 05/09/21 [Symbicort 80-4.5 Mcg Inhaler] Ipratropium-Albuterol Nebulize 3 ml INHALATION RT-QID PRN 01/23/21 05/09/21 [Duoneb 0.5 mg-3 mg/3 ml Soln] Allergies Allergy/AdvReac Type Severity Reaction Status Date / Time No Known Allergies Allergy Verified 05/09/21 19:41 Review of Systems ROS Statement: Those systems with pertinent positive or pertinent negative responses have been documented in the HPI. Review of Systems: CONST: Denies fever EYES: Denies blurry vision ENT: Denies nasal congestion C/V: Denies Chest pain RESP: Endorses shortness of breath GI: Denies abdominal pain : Denies dysuria SKIN: Denies rash. MSK: Denies joint pain. NEURO: Denies headache ROS Other: All systems not noted in ROS Statement are negative. Past Medical History Past Medical History: COPD History of Any Multi-Drug Resistant Organisms: None Reported Past Surgical History: No Surgical Hx Reported Past Anesthesia/Blood Transfusion Reactions: No Reported Reaction Past Psychological History: No Psychological Hx Reported Smoking Status: Former smoker Past Alcohol Use History: None Reported Past Drug Use History: None Reported General Exam - General Exam Comments Initial Comments: General: Appears in mild respiratory distress with audible wheezing. There is no increased work of breathing. No tachypnea. There are no retractions. HEAD: Normal with no signs of head trauma. EYES: PERRLA, EOMI, conjunctiva normal, no discharge. ENT: Hearing grossly intact, normal oropharynx. RESPIRATORY: Patient has bilateral end expiratory wheezing that is diffuse throughout all lung john. There is no increased work of breathing. Patient is mildly hypoxic to 91%. C/V: Regular rate and rhythm. S1 and S2 auscultated, no edema, peripheral pulses 2+ and intact throughout ABD: Abd is soft, nontender, nondistended EXT: Normal range of motion, no obvious deformity SKIN: No rashes or lesions observed on exposed skin. NEURO: Alert and oriented 4. Limitations: no limitations Course Vital Signs 05/09/21 05/09/21 05/09/21 14:22 16:15 17:13 Temperature 97.6 F Pulse Rate 68 81 93 Respiratory 16 22 18 Rate Blood Pressure 138/75 139/112 154/98 O2 Sat by Pulse 91 L 96 93 L Oximetry 05/09/21 05/09/21 05/09/21 17:18 17:30 18:25 Temperature Pulse Rate 80 82 80 Respiratory Rate Blood Pressure O2 Sat by Pulse Oximetry 05/09/21 05/09/21 05/09/21 18:34 18:50 18:52 Temperature Pulse Rate 82 84 89 Respiratory 18 Rate Blood Pressure 154/98 O2 Sat by Pulse 99 Oximetry 05/09/21 19:58 Temperature 97.4 F L Pulse Rate 104 H Respiratory 20 Rate Blood Pressure 127/89 O2 Sat by Pulse 92 L Oximetry Medical Decision Making - Medical Decision Making Based on the patient's presentation and physical exam, I'm concerned for possible cardiopulmonary process for his current symptoms, including bronchitis, COPD, ACS. Therefore cardiac workup including troponin, basic labs, EKG, chest x-ray will be obtained. Patiently connected to continuous cardiac monitoring. He will be administered 2 g magnesium, 40 mg of IV Solu-Medrol, as well as multiple breathing treatments was here in the department. Covid 19 will be obtained, however the patient is fully vaccinated, Covid 19. He was in agreement with this plan. Patient's EKG was unremarkable was not concerning for acute ischemic changes. Chest x-ray revealed no acute cardiopulmonary process, but was concerning for chronic interstitial lung disease or bronchitis. Laboratory studies were obtained. Troponin is negative. Remainder of his labs are unremarkable. On reevaluation, patient is still extremely wheezy in bilateral lung john. He intermittently will become hypoxic down to 90 or 91% which improves with breathing treatments. He'll be admission and another 2 breathing treatments and subsequently reevaluated. On reevaluation, patient remains wheezy with intermittent hypoxia. I did discuss with him that I would like to admit him to the hospital for further breathing treatments and monitoring he was in agreement this plan. I spoke with the admitting physician, Dr. harris who accepted the patient. Patient was therefore admitted to the hospital in guarded condition. He'll be placed on 2 L nasal cannula for his hypoxia is receives intermittent pretty treatments. - Lab Data Result diagrams: 05/09/21 15:25 05/09/21 15:25 Lab Results 05/09/21 05/09/21 05/09/21 Range/Units 15:25 15:25 15:25 WBC 7.7 (3.8-10.6) k/uL RBC 5.11 (4.30-5.90) m/uL Hgb 15.1 (13.0-17.5) gm/dL Hct 44.7 (39.0-53.0) % MCV 87.4 (80.0-100.0) fL MCH 29.5 (25.0-35.0) pg MCHC 33.7 (31.0-37.0) g/dL RDW 14.7 (11.5-15.5) % Plt Count 247 (150-450) k/uL MPV 7.2 Neutrophils % 61 % Lymphocytes % 17 % Monocytes % 7 % Eosinophils % 11 % Basophils % 1 % Neutrophils # 4.7 (1.3-7.7) k/uL Lymphocytes # 1.3 (1.0-4.8) k/uL Monocytes # 0.5 (0-1.0) k/uL Eosinophils # 0.9 H (0-0.7) k/uL Basophils # 0.1 (0-0.2) k/uL PT (9.0-12.0) sec INR (<1.2) APTT (22.0-30.0) sec Sodium 145 (137-145) mmol/L Potassium 4.1 (3.5-5.1) mmol/L Chloride 105 (98-107) mmol/L Carbon Dioxide 30 (22-30) mmol/L Anion Gap 10 mmol/L BUN 18 (9-20) mg/dL Creatinine 0.82 (0.66-1.25) mg/dL Est GFR (CKD-EPI)AfAm >90 (>60 ml/min/1.73 sqM) Est GFR (CKD-EPI)NonAf 82 (>60 ml/min/1.73 sqM) Glucose 120 H (74-99) mg/dL Plasma Lactic Acid [place] 1.4 (0.7-2.0) mmol/L Calcium 9.6 (8.4-10.2) mg/dL Total Bilirubin 0.3 (0.2-1.3) mg/dL AST 28 (17-59) U/L ALT 14 (4-49) U/L Alkaline Phosphatase 85 (38-126) U/L Troponin I (0.000-0.034) ng/mL Total Protein 6.9 (6.3-8.2) g/dL Albumin 4.1 (3.5-5.0) g/dL 05/09/21 05/09/21 Range/Units 15:25 15:33 WBC (3.8-10.6) k/uL RBC (4.30-5.90) m/uL Hgb (13.0-17.5) gm/dL Hct (39.0-53.0) % MCV (80.0-100.0) fL MCH (25.0-35.0) pg MCHC (31.0-37.0) g/dL RDW (11.5-15.5) % Plt Count (150-450) k/uL MPV Neutrophils % % Lymphocytes % % Monocytes % % Eosinophils % % Basophils % % Neutrophils # (1.3-7.7) k/uL Lymphocytes # (1.0-4.8) k/uL Monocytes # (0-1.0) k/uL Eosinophils # (0-0.7) k/uL Basophils # (0-0.2) k/uL PT 10.9 (9.0-12.0) sec INR 1.0 (<1.2) APTT 23.7 (22.0-30.0) sec Sodium (137-145) mmol/L Potassium (3.5-5.1) mmol/L Chloride (98-107) mmol/L Carbon Dioxide (22-30) mmol/L Anion Gap mmol/L BUN (9-20) mg/dL Creatinine (0.66-1.25) mg/dL Est GFR (CKD-EPI)AfAm (>60 ml/min/1.73 sqM) Est GFR (CKD-EPI)NonAf (>60 ml/min/1.73 sqM) Glucose (74-99) mg/dL Plasma Lactic Acid Graham (0.7-2.0) mmol/L Calcium (8.4-10.2) mg/dL Total Bilirubin (0.2-1.3) mg/dL AST (17-59) U/L ALT (4-49) U/L Alkaline Phosphatase (38-126) U/L Troponin I <0.012 (0.000-0.034) ng/mL Total Protein (6.3-8.2) g/dL Albumin (3.5-5.0) g/dL - EKG Data -: EKG Interpreted by Me EKG Comments: 12-lead Electrocardiogram Interpretation Note EKG was reviewed and interpreted by myself. 12-lead ECG performed at 1519 is interpreted by me as revealing normal sinus rhythm with occasional PAC at a rate of 89 beats per minute. [place] is normal. [place] interval is 152 ms, QRS duration is 76 ms, QTC is 440 ms.. There are isoelectric T waves in lead III.. R wave progression across the precordium was satisfactory. By my interpretation this EKG is non-diagnostic for acute ischemia. Disposition Clinical Impression: COPD exacerbation, Bronchitis, Hypoxia Disposition: ADMITTED IP TO THIS HOSP Condition: Serious Referrals: Nonstaff,Physician [Primary Care Provider] - 1-2 days
[2021-05-09] MEDS: DOXYCYCLINE 100 MG CAP PO SCH (20:49)
[2021-05-09 23:01] VITALS: RESP 18
[2021-05-09] MEDS: HEPARIN SODIUM,PORCINE/PF 5,000 UNIT/0.5 ML SYRINGE SQ SCH (23:27)
[2021-05-10 02:50] VITALS: TEMP 97.8
[2021-05-10 08:44] VITALS: BP 121/72
[2021-05-10 08:51] VITALS: PULSE 78
[2021-05-10] MEDS: DOXYCYCLINE 100 MG CAP PO SCH (08:53)
[2021-05-10] MEDS: HEPARIN SODIUM,PORCINE/PF 5,000 UNIT/0.5 ML SYRINGE SQ SCH (08:53)
[2021-05-10] MEDS ORDERED: SYMBICORT 80-4.5 MCG INHALER INHALATION PRN (09:32)
[2021-05-10] MEDS ORDERED: FINASTERIDE 5 MG TAB PO SCH (09:45)
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
--- NOTE | 2021-05-10 16:08 | P.DS ---
Providers Date of admission: 05/09/21 19:47 Attending physician: Darius Duffy MD Primary care physician: Physician Nonstaff Hospital Course: Please refer to my HPI for further details Patient Condition at Discharge: Serious Plan - Discharge Summary Discharge Rx Participant: No New Discharge Prescriptions: New Doxycycline [Vibramycin] 100 mg PO BID #10 cap Continue Vitamin B Complex 1 cap PO DAILY Tamsulosin [Flomax] 0.4 mg PO DAILY Simvastatin 40 mg PO HS [place]-3 Fatty Acids/Fish Oil [Fish Oil 1,000 mg Softgel] 1 cap PO DAILY Glucos Sul 2Kcl/MSM/Chond/C/Mn [Glucosamine Chondroitin Cap] 1 cap PO DAILY Finasteride [Proscar] 5 mg PO DAILY Cholecalciferol [Vitamin D3 (25 Mcg = 1000 Iu)] 125 mcg PO DAILY Albuterol Sulfate [Albuterol Sulfate Hfa] 1 - 2 puff INHALATION RT-Q6H PRN PRN Reason: Shortness Of Breath Budesonide/Formoterol Fumarate [Symbicort 80-4.5 Mcg Inhaler] 2 puff INHALATION RT-BID PRN PRN Reason: Shortness Of Breath Ipratropium-Albuterol Nebulize [Duoneb 0.5 mg-3 mg/3 ml Soln] 3 ml INHALATION RT-QID PRN PRN Reason: Shortness Of Breath Discharge Medication List Albuterol Sulfate [Albuterol Sulfate Hfa] 1 - 2 puff INHALATION RT-Q6H PRN 01/22/21 [History] Cholecalciferol [Vitamin D3 (25 Mcg = 1000 Iu)] 125 mcg PO DAILY 01/22/21 [History] Finasteride [Proscar] 5 mg PO DAILY 01/22/21 [History] Glucos Sul 2Kcl/MSM/Chond/C/Mn [Glucosamine Chondroitin Cap] 1 cap PO DAILY 01/22/21 [History] [place]-3 Fatty Acids/Fish Oil [Fish Oil 1,000 mg Softgel] 1 cap PO DAILY 01/22/21 [History] Simvastatin 40 mg PO HS 01/22/21 [History] Tamsulosin [Flomax] 0.4 mg PO DAILY 01/22/21 [History] Vitamin B Complex 1 cap PO DAILY 01/22/21 [History] Budesonide/Formoterol Fumarate [Symbicort 80-4.5 Mcg Inhaler] 2 puff INHALATION RT-BID PRN 01/23/21 [History] Ipratropium-Albuterol Nebulize [Duoneb 0.5 mg-3 mg/3 ml Soln] 3 ml INHALATION RT-QID PRN 01/23/21 [History] Doxycycline [Vibramycin] 100 mg PO BID #10 cap 05/10/21 [Rx] Follow up Appointment(s)/Referral(s): Daya Whiteside MD [STAFF PHYSICIAN] - 1 Week Scar Bose MD [STAFF PHYSICIAN] - 3 Days Patient Instructions/Handouts: COPD (Chronic Obstructive Pulmonary Disease) (DC) Activity/Diet/Wound Care/Special Instructions: activity as tolerated regular diet Discharge Disposition: HOME SELF-CARE
[2021-05-10] MEDS ORDERED: ATORVASTATIN 20 MG TAB PO SCH (21:00)
[2021-05-11] MEDS ORDERED: CHOLECALCIFEROL 25 MCG (1000 IU) TABLET PO SCH (09:00)
[2021-05-11] MEDS ORDERED: TAMSULOSIN 0.4 MG CAP.ER.24H PO SCH (09:00)
== END 2021-05-10 12:01 | disposition home or self-care (01) ==
LOC: EC 13:46 → 6NMEDSUR 19:47
PROVIDERS: ADMIT Internal Medicine; ATTEND Internal Medicine
DX: J20.9 Acute bronchitis, unspecified (principal); J44.1 Chronic obstructive pulmonary disease with (acute) exacerbation; J44.0 Chronic obstructive pulmonary disease with (acute) lower respiratory infection; N40.0 Benign prostatic hyperplasia without lower urinary tract symptoms; R09.02 Hypoxemia; E78.5 Hyperlipidemia, unspecified; Z20.822 Contact with and (suspected) exposure to COVID-19; Z87.891 Personal history of nicotine dependence; Z79.899 Other long term (current) drug therapy; Z79.51 Long term (current) use of inhaled steroids
CPT/HCPCS: 96372 ×2; 96365; 96366; 96375; 99285; 36415; 94640 ×3; 94760; 93005; 80053; 83605; 84484; 85025; 85610; 85730; 87635; 71046; G0378 ×3; S0138; J2920; J3475; J1644 ×2

== ENCOUNTER → 2025-01-27 | Outpatient (CLI) | payer BC, MEDICARE ==
[2025-01-27 15:43] LABS: Basophils # (A) 0.05 X 10*3/uL (0.00-0.10); Basophils % (A) 0.7 %; Eosinophils # (A) 0.63 X 10*3/uL (0.04-0.35); Eosinophils % (A) 8.7 %; HCT 39.9 % (39.6-50.0); HGB 13.3 g/dL (13.0-17.0); Lymphocytes # (A) 1.67 X 10*3/uL (0.90-5.00); MCH 30.6 pg (27.0-32.0); MCHC 33.3 g/dL (32.0-37.0); MCV 91.9 FL (80.0-97.0); Mean Platelet Volume 11.1 FL (9.5-12.2); Monocytes # (A) 0.69 X 10*3/uL (0.20-1.00); Monocytes % (A) 9.5 %; NRBC Per 100 WBC 0 X 10*3/uL (0.00-0.01); Neutrophils # (A) 4.18 X 10*3/uL (1.80-7.70); Neutrophils % (A) 57.7 %; Platelet Count 206 X 10*3/uL (140-440); RBC 4.34 X 10*6/uL (4.40-5.60); RDW 14.3 % (11.5-14.5); WBC 7.25 X 10*3/uL (4.50-10.00)
[2025-01-27 15:53] LABS: ALT 17 U/L (10-49); AST 26 U/L (14-35); Albumin 4.1 g/dL (3.8-4.9); Albumin/Globulin Ratio 1.64 Ratio (1.60-3.17); Alkaline Phosphatase 80 U/L (41-126); BUN/Creat Ratio 14.44 Ratio (12.00-20.00); Calcium 9.1 mg/dL (8.7-10.3); Carbon Dioxide 28.3 mmol/L (21.6-31.8); Chloride 106 mmol/L (96-109); Chol/HDL Ratio 1.99 Ratio; Globulin 2.5 g/dL (1.6-3.3); Glucose 106 mg/dL (70-110); LDL Cholesterol,Calculated 51.1 mg/dL (0.0-131.0); Potassium 4.2 mmol/L (3.5-5.5); Sodium 145 mmol/L (135-145); Total Bilirubin 0.5 mg/dL (0.3-1.2); Total Protein 6.6 g/dL (6.2-8.2)
== END | disposition home or self-care (01) ==
LOC: LABWHC1 09:29
PROVIDERS: ATTEND Family Medicine
DX: E78.5 Hyperlipidemia, unspecified (principal); R00.8 Other abnormalities of heart beat
CPT/HCPCS: 36415; 80053; 80061; 84443; 84481; 85025